=== PATIENT | male | born 1960 | race Two or more races ===

== ENCOUNTER 2020-01-26 01:35 | Inpatient (IN) | payer OTHER ==
[2020-01-26] VITALS (18 sets, daily range): BP systolic 98–139; BP diastolic 40–91
[~2020-01-26] VITALS: Ht 167.6 cm; Wt 64.4 kg
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
--- NOTE | 2020-01-26 01:53 | NUR ---
PT WAS TAKEN TO CT
[2020-01-26] MEDS ORDERED: TDAP [DIPH/PERTUSSIS/TET] 0.5 ML VIAL IM ONE ×2 (02:00→02:44)
--- NOTE | 2020-01-26 02:05 | NUR ---
BACK FRON CT, [employer] AT BED SIDE
--- NOTE | 2020-01-26 02:22 | NUR ---
DR. LOVE SPEAKING WITH RADIOLOGIST
[2020-01-26] MEDS ORDERED: IV NS 0.9% 500 ML BAG IV ONE (02:30)
--- NOTE | 2020-01-26 02:44 | NUR ---
ATTEMPTED TO CONTACT DR. SONI, LEFT MESSAGE. WILL FOLLOW UP
[2020-01-26 02:49] LABS: BASOPHILS # (AUTO) 0.1 /CMM (0.0-0.2); BASOPHILS % (AUTO) 1.2 % (0.0-2.0); CALCIUM, SERUM 9.4 mg/dL (8.5-10.1); CARBON DIOXIDE 28 mmol/L (21-32); CHLORIDE 103 mmol/L (98-107); EOSINOPHILS % (AUTO) 2.5 % (0.0-6.0); GLUCOSE 116 mg/dL (74-106); HEMATOCRIT 44 % (39-51); HEMOGLOBIN 14.5 g/dL (13.5-17.5); LYMPHOCYTES # (AUTO) 1.9 /CMM (0.8-4.8); LYMPHOCYTES % (AUTO) 15.8 % (20.0-44.0); MEAN CORPUSCULAR HGB CONC 33 g/dl (31.0-36.0); MEAN CORPUSCULAR VOLUME 94 fL (80-96); MONOCYTES # (AUTO) 0.8 /CMM (0.1-1.30); MONOCYTES % (AUTO) 6.6 % (2.0-12.0); NEUTROPHILS # (AUTO) 9.1 /CMM (1.8-8.9); NEUTROPHILS % (AUTO) 73.9 % (43.0-81.0); PLATELET COUNT (AUTO) 377 /CMM (150-450); POTASSIUM 4.6 mmol/L (3.5-5.1); RED BLOOD CELL COUNT(AUTO) 4.65 MIL/uL (4.5-6.0); SODIUM SERUM 139 mmol/L (136-145); UREA NITROGEN, BLOOD 18 mg/dL (7-18); WHITE BLOOD COUNT (AUTO) 12.3 K/uL (4.3-11.0)
--- NOTE | 2020-01-26 02:51 | NUR ---
COVID SWAB COLLECTED AND SENT TO THE LAB.
--- NOTE | 2020-01-26 03:00 | NUR ---
BED ASSIGNMENT 255 ICU
--- NOTE | 2020-01-26 03:54 | NUR ---
ATTEMPTED TO CONTACT DR. SONI, LEFT MESSAGE. WILL FOLLOW UP
--- NOTE | 2020-01-26 04:15 | NUR ---
Patient is resting comfortably in bed with eyes closed. Easily aroused. VSS. WILL CONT TO MONITOR ,
--- NOTE | 2020-01-26 05:17 | NUR ---
DR. LOVE SPEAKING WITH DR. SONI
--- NOTE | 2020-01-26 05:31 | NUR ---
pt resting in bed arouses easily. breathing evenly. no acute distress noted . no change in LOC or MS. VSS. will cont to monitor .
[2020-01-26] MEDS ORDERED: MAGNESIUM HYDROXIDE 30 ML UDC PO PRN (06:00)
[2020-01-26] MEDS ORDERED: MAG HYDROX/AL HYDROX/SIMETH 30 ML UDC PO PRN (06:00)
[2020-01-26] MEDS ORDERED: ACETAMINOPHEN 325 MG TABLET PO PRN (06:00)
[2020-01-26] MEDS ORDERED: Z GUARD REMEDY 2 OZ OINT TP PRN (06:00)
[2020-01-26] MEDS ORDERED: ONDANSETRON HCL/PF 4 MG/2 ML VIAL IVP PRN (06:00)
[2020-01-26] MEDS ORDERED: TEMAZEPAM 15 MG CAPSULE PO PRN (06:00)
--- NOTE | 2020-01-26 06:00 | NUR ---
report given to Claudio @ ICU
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
--- NOTE | 2020-01-26 06:25 | NUR ---
pt was transferred to icu under acls. during transfer, noted pt w/ swollen LFA. JAYDEN Snyder and Jordan DEBT COLLECTION SPECIALIST made aware w/ an order for LFA xray. Claudio made aware of the new order.
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
[2020-01-26] MEDS: IV NS 0.9% 1,000 ML IV PRN ×2 (06:46→18:34)
[2020-01-26] MEDS: PANTOPRAZOLE 40 MG TABLET.DR PO SCH (07:39)
[2020-01-26] MEDS: HYDROCODONE/APAP 5/325MG TABLET PO PRN (07:52)
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
--- NOTE | 2020-01-26 09:26 | NUR ---
WOUND CARE CONSULT: PT PRESENTS WITH MULTIPLE WOUNDS PRESENT ON ADMISSION INCLUDING LEFT LOWER LEG RAISED WOUND, LEFT ARM SKIN TEAR, RT FOREHEAD ABRASION WITH RAISED AREA AND POSTERIOR SCALP CLOSED LACERATION WITH JACKI. RECOMMEND SURGICAL AND DPM CONSULTS. DR ARI ONEILL NOTIFIED OF CONSULT REQUEST FOR FOREHEAD AND DR CHENEY NOTIFIED OF DPM CONSULT FOR LEFT LEG. RECOMMENDATIONS MADE FOR SKIN PROTECTION AND WOUND CARE. DEFER TO DPM FOR LOWER EXTREMITY. WILL SEE PRN. HERNANDEZ IN AGREEMENT WITH PLAN OF CARE. Addendum: 01/26/20 at 0928 by JAYCE WOODS WNDNU Amended: Links added.
--- NOTE | 2020-01-26 12:08 | NUR ---
patient's brother Ray: [phone]
--- NOTE | 2020-01-26 12:30 | NUR ---
Dr. Guadalupe aware of LLE swelling/yellow drainage & DMP dx cellulitis. no new orders, monitor for changes
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
--- NOTE | 2020-01-26 17:11 | NUR ---
RETAIL AND PROMOTIONS COORDINATOR closing Patient remains A/Ox4, no neuro changes noted. smile, shoulder, shrug & oncology social worker strength equal, PERRLA, no slurred speech or reports of nausea, dizziness or one sided weakness. SR HR 80s, ambulated to bathroom today, voided x1, wound care orders completed, ate 100% of food, edema L leg, see prior note for MD communication. R AC 22G & L AC 18G, NS @75mL/hr. temp 99.1F @1600. educated pt to report chills/malaise
--- NOTE | 2020-01-26 17:45 | NUR ---
JOINTER OPERATOR NOTES REPORT GET FROM RN . PATIENT A/O X3, ROOM AIR NO ACUTE RESPIRATORY DISTRESS, V/S TAKEN BP-104/71, P-78, R-18, O2-100 ROOM AIR, T- 99.1, REFUSED PAIN, NEURO CHECK DONE ABLE TO MOVE FACE, SHRUG SHOULDERS, ELEVATE LOWER AND UPPER EXTREMITIES. DRESSING INTACT ON HEAD, NO BLEEDING INTACT. INFUSING NS AT 75 ML/HR INTACT ON LEFT AC . CALL LIGHT WITHIN TO REACH. WILL CONTINUED MONITORING.
--- NOTE | 2020-01-26 18:55 | NUR ---
EDGER HAND NOTES PATIET RESTING , NO ACUTE RESPIRATORY DISTRESS, V/S TAKEN BP 119/68, P-88, R=19. ROOM AIR. DUE MEDICATION DONE, INFUSING NS AT 75 ML/HR ON LAC INTACT. CALL LIGHT WITHIN TO REACH. SAFETY PRECAUTION MAINTAINED ALL THE TIME. ENDORSED ONCOMING NURSE FOLLOW PLAN OF CARE.
--- NOTE | 2020-01-26 19:05 | NUR ---
RECEIVED PT ON BED AWAKE. A/O X3 ON RA SPO2 98% ON TELE MONITOR READS SINUS RHYTHM 80'S, KERLIZ BANDAGE ON HEAD CLEAN AND DRY, PT IS ABLE TO TALK,GCS 15 WITH RAC # 22 AND LAC # 18 PATENT AND FLUSHED WITH ONGOING NS @ 75ML/HR , BED ON LOWEST POSITION AND LOCKED SIDE RAILS UP X 2 CALL LIGHT WITHIN REACH WILL CONT TO MONITOR THE PT
--- NOTE | 2020-01-26 23:23 | NUR ---
no changes on condition pt asleep easy to wake up, GCS 15 spo2 99% on room air no complaint of pain will cont to monitor
[2020-01-27] VITALS (20 sets, daily range): BP systolic 101–128; BP diastolic 47–78
--- NOTE | 2020-01-27 04:30 | NUR ---
NO CHANGES ON CONDITION NOTED, GIVE PT BED BATH PT AWAKE AND GCS 15, WOUND TREATMENT DONE ORDERED TOLERATED WELL SPO2 99% VIA ROOM AIR NO COMPLAIN TO PAIN WILL CONT TO MONITOR
[2020-01-27 04:37] LABS: BASOPHILS # (AUTO) 0.1 /CMM (0.0-0.2); BASOPHILS % (AUTO) 0.9 % (0.0-2.0); HEMATOCRIT 40 % (39-51); HEMOGLOBIN 13.2 g/dL (13.5-17.5); LYMPHOCYTES # (AUTO) 1.9 /CMM (0.8-4.8); LYMPHOCYTES % (AUTO) 25.9 % (20.0-44.0); MEAN CORPUSCULAR HGB CONC 33 g/dl (31.0-36.0); MEAN CORPUSCULAR VOLUME 93 fL (80-96); MONOCYTES # (AUTO) 0.7 /CMM (0.1-1.30); MONOCYTES % (AUTO) 9.6 % (2.0-12.0); NEUTROPHILS # (AUTO) 4.3 /CMM (1.8-8.9); NEUTROPHILS % (AUTO) 59.6 % (43.0-81.0); PLATELET COUNT (AUTO) 343 /CMM (150-450); RED BLOOD CELL COUNT(AUTO) 4.26 MIL/uL (4.5-6.0); WHITE BLOOD COUNT (AUTO) 7.2 K/uL (4.3-11.0)
[2020-01-27 04:44] LABS: CALCIUM, SERUM 8.2 mg/dL (8.5-10.1); CREATININE 0.7 mg/dL (0.6-1.3); MAGNESIUM 2.1 mg/dL (1.8-2.4); PHOSPHORUS 3.1 mg/dL (2.5-4.9); POTASSIUM 3.9 mmol/L (3.5-5.1)
[2020-01-27] MEDS: IV NS 0.9% 1,000 ML IV PRN (06:52)
--- NOTE | 2020-01-27 07:23 | NUR ---
PT ASLEEP ON BED EASY TO WAKE UP STILL ON SINUS RHYTHM @ 70'S HAVE EPISODES OF SINUS VASQUEZ 55, OTHER THAN THAN NO SIGNIFICANT CHANGES ON CONDITION NOTED PT STILL GCS 15, ALL NEEDS ATTENDED WOUND TREATMENT DONE BED ON LWOEST PSOITION AND LOCKED SIDE RAILS UP X2 CALL LIGHT WITHIN REACH WILL ENDORSED TO AM SHIFT NURSE
[2020-01-27] MEDS: PANTOPRAZOLE 40 MG TABLET.DR PO SCH (07:41)
[2020-01-27] MEDS: HYDROCODONE/APAP 5/325MG TABLET PO PRN ×3 (14:41→23:15)
--- NOTE | 2020-01-27 18:26 | NUR ---
f/u CT head today showed no new changes, per MD ok to transfer. patient remains a/ox4, no neuro changes noted, on room air, transferred via acls protocol to lower level of care. wound care completed. daughter requesting disability forms to be filled out, per chance from case management primary care physician to follow up
--- NOTE | 2020-01-27 19:00 | NUR ---
OFFICE CLIN ASST NOTE 1830 CONTINUITY OF CARE REPORT RECEIVED FROM DENNIS. RECEIVED PATIENT ALERT AND ORIENTED. C/O HEADACHE 11/01. NO DISTRESS NOTED. PATIENT TRANSFERRED VIA BED ACLS PROTOCOL TO ROOM 112-1, ORIENTED PATIENT TO ROOM AND CALL LIGHT SYSTEM. PATIENT VERBALIZED UNDERSTANDING. ALL BELONGINGS WITH PATIENT. WILL CONTINUE TO MONITOR. 1900 PATIENT RESTING IN BED COMFORTABLY. CALL LIGHT IN HAND. SR ON TELE MONITOR. HOB ELEVATED. SIDE RAILS UP AND LOCKED. BED KEPT AT LOWEST POSITION. CONTINUITY OF CARE ENDORSED TO PM NURSE.
--- NOTE | 2020-01-27 19:40 | NUR ---
NEON SIGN INSTALLER NOTES, RECEIVED PT ON BED ASLEEP BUT AROUSES EASILY TO VERBAL STIMULI, A/O X3, NO CHANGE IN LOC, ON RA SPO2 >97%, SR ON TELE MONITOR WITH HR 80S AT THIS TIME, NO SOB/ACUTE RESPIRATORY DISTRESS NOTED, RAC # 22 AND LAC # 18 PATENT AND INTACT, 0.9% NS @ 75ML/HR INFUSING WELL AND PATIENT TOLERATING WELL, , BED LOCKED AND LOWEST POSITION, SIDE RAILS UP X 2 CALL LIGHT WITHIN REACH, MEDICATION FOR PAIN JUST ADMINISTERED BY NURSE PRIOR TO GIVE ME REPORT, WILL CONTINUE TO MONITOR THE PATIENT CLOSELY.
[2020-01-28] VITALS (7 sets, daily range): BP systolic 107–125; BP diastolic 68–76
[2020-01-28] MEDS: IV NS 0.9% 1,000 ML IV PRN ×2 (02:06→13:15)
[2020-01-28] MEDS: HYDROCODONE/APAP 5/325MG TABLET PO PRN ×2 (03:09→07:51)
[2020-01-28 06:03] LABS: BASOPHILS # (AUTO) 0.1 /CMM (0.0-0.2); BASOPHILS % (AUTO) 0.7 % (0.0-2.0); HEMATOCRIT 42 % (39-51); HEMOGLOBIN 13.9 g/dL (13.5-17.5); LYMPHOCYTES # (AUTO) 1.8 /CMM (0.8-4.8); LYMPHOCYTES % (AUTO) 22.4 % (20.0-44.0); MEAN CORPUSCULAR HGB CONC 33 g/dl (31.0-36.0); MEAN CORPUSCULAR VOLUME 94 fL (80-96); MONOCYTES # (AUTO) 0.8 /CMM (0.1-1.30); NEUTROPHILS # (AUTO) 5.1 /CMM (1.8-8.9); NEUTROPHILS % (AUTO) 62.9 % (43.0-81.0); PLATELET COUNT (AUTO) 356 /CMM (150-450); RED BLOOD CELL COUNT(AUTO) 4.45 MIL/uL (4.5-6.0); WHITE BLOOD COUNT (AUTO) 8.1 K/uL (4.3-11.0)
[2020-01-28] MEDS: MORPHINE SULFATE INJ 2 MG/ML DISP.SYRIN IV PRN ×2 (06:03→20:08)
[2020-01-28 06:08] LABS: CALCIUM, SERUM 8.6 mg/dL (8.5-10.1); CREATININE 0.8 mg/dL (0.6-1.3); POTASSIUM 4.1 mmol/L (3.5-5.1)
--- NOTE | 2020-01-28 06:44 | NUR ---
AEROBICS TEACHER CLOSING NOTES, PATIENT IN BED ASLEEP BUT AROUSES EASILY TO VERBAL STIMULI, A/O X3, NO CHANGE IN LOC THROUGHOUT THE NIGHT, ON RA SPO2 >95% THROUGHOUT THE NIGHT, SR ON TELE MONITOR WITH HR 80S AT THIS TIME, GOES TO 50S WHEN PATIENT SLEEPING, NO SOB/ACUTE RESPIRATORY DISTRESS NOTED, RAC # 22 AND LAC # 18 PATENT AND INTACT, 0.9% NS @ 75ML/HR INFUSING WELL AND PATIENT TOLERATING WELL, NORCOX2 AND MORPHINE X1 ADMINISTERED THROUGHOUT THE NIGHT FOR HEADACHE, BED LOCKED AND LOWEST POSITION, SIDE RAILS UP X 2, CALL LIGHT WITHIN REACH, WILL ENDORSE CONTINUITY OF CARE TO ONCOMING NURSE.
--- NOTE | 2020-01-28 07:30 | NUR ---
RN OPENING NOTE PATIENT IN BED, NO S/S OF DISTRESS, NO SOB, ROOM AIR, O2 SAT 98%, A/O X4 STATELESS AND TAMAZIGHT SPEAKING, TELE MONITOR ON, SINUS RHYTHM, L AC 18 G AND L HAND 18 G PATENT, DRY, INTACT, CLEAN, FLSUEHS WELL, PAIN 9/10 IN HEAD AND BACK, WOUND DRESSINGS ARE CLEAN DRY AN D INTACT, BED IN LOWEST LOCKED POSITION, CALL LIGHT WITHIN REACH, SAFETY MEASURES IN PLACE.
[2020-01-28] MEDS: PANTOPRAZOLE 40 MG TABLET.DR PO SCH (07:50)
--- NOTE | 2020-01-28 10:00 | NUR ---
RN NOTE MD NOTIFIED OF LDL 75, SAID PATIENT IS NOT A STROKE PATIENT SO STATIN DOES NOT NEED TO BE ORDERED. ALSO SAID IT WAS OK TO GIVE flu vaccine.
[2020-01-28] MEDS ORDERED: INFLUENZA VACCINE 2020-21 0.5 ML DISP.SYRIN IM ONE (10:30)
--- NOTE | 2020-01-28 10:46 | NUR ---
RN NOTE PT GOT PATIENT UP OUT OF BED, WAS ABLE TO STAND AND WALK WITH WALKER INTO HALLWAY AND BACK INTO ROOM. PATIENT IS NOW IN BED.
--- NOTE | 2020-01-28 10:50 | NUR ---
STORE GROCERY MERCHANDISER NOTE C\O SEVERE PAIN ON BACK AND HEAD ,STATED THAT MORPHINE AND NORCO NOT HELPING SPOKE WITH DR PRIETO NOTIFIED ABOUT THIS, ORDERED NORCO 10-325 TIME ONE .WILL MONITOR
[2020-01-28] MEDS ORDERED: HYDROCODONE/APAP 10/325MG TABLET PO ONE (11:00)
--- NOTE | 2020-01-28 14:00 | NUR ---
FAMILY COURT REGISTRAR NOTE ROUNDS MADE ,ABLE TO URINATE 900 ML YELLOW COLOR URINE , KEEP CLEAN DRY , CALL LIGHT WITHIN REACH
--- NOTE | 2020-01-28 17:43 | NUR ---
supervisor telephone answering service note having dinner , able to eat self not in distress, cont on ivf as ordered
--- NOTE | 2020-01-28 18:30 | NUR ---
television antenna installer note all needs attended ,cont on ivf as ordered, keep clean dry, no sob noted
--- NOTE | 2020-01-28 18:52 | NUR ---
RN NOTE REMOVED L FOREARM IV BECAUSE OF REDNESS AND PAIN NOTED AT THE SITE. NOW PATIENT HAS L HAND IV ONLY. WILL NOTIFY ONCOMING HOT SAW OPERATOR NURSE. PATIENT ONLY HAS IV NS AT 75ML/HR RUNNING IN L HAND.
--- NOTE | 2020-01-28 18:56 | NUR ---
RN NOTE APPLIED ICE PACK TO REMOVED IV SITE TO HELP DECREASE REDNESS. ARM ELEVATED.
--- NOTE | 2020-01-28 18:56 | NUR ---
RN CLOSING NOTE PATIENT IS IN BED, NO S/S OF DISTRESS, NO RESP DIFFICULTY OR SOB, ON ROOM AIR SAT 97%, A/O X4, NEURO CHECKS ALL DAY HAVE SHOWN NO CHANGES FROM BASELINE, SINUS RHYTHM, AMBULATORY WITH WALKER, L HAND 18 G IV, REGULAR DIET, WOUNDS ARE CLEAN TRY AND INTACt. will endorse to receiving team member
--- NOTE | 2020-01-28 19:27 | NUR ---
RN CALLED BY [facility], TALKED TO JIMENA, ASKED TO SCHEDULE A FOLLOW UP APPOINTMENT. GAVE ELECTRON BEAM WELDER SETTER NURSE THE CONTACT INFORMATION.
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
[2020-01-29] VITALS: BP 125/82
[2020-01-29] MEDS: IV NS 0.9% 1,000 ML IV PRN (02:15)
[2020-01-29] MEDS: MORPHINE SULFATE INJ 2 MG/ML DISP.SYRIN IV PRN (03:04)
[2020-01-29 04:00] VITALS: BP 113/75
[2020-01-29 06:04] LABS: BASOPHILS # (AUTO) 0.1 /CMM (0.0-0.2); BASOPHILS % (AUTO) 0.7 % (0.0-2.0); EOSINOPHILS % (AUTO) 3.7 % (0.0-6.0); HEMATOCRIT 43 % (39-51); HEMOGLOBIN 14.2 g/dL (13.5-17.5); LYMPHOCYTES # (AUTO) 1.5 /CMM (0.8-4.8); LYMPHOCYTES % (AUTO) 13.8 % (20.0-44.0); MEAN CORPUSCULAR HGB CONC 33 g/dl (31.0-36.0); MEAN CORPUSCULAR VOLUME 93 fL (80-96); MONOCYTES % (AUTO) 8.9 % (2.0-12.0); NEUTROPHILS # (AUTO) 8.1 /CMM (1.8-8.9); NEUTROPHILS % (AUTO) 72.9 % (43.0-81.0); PLATELET COUNT (AUTO) 385 /CMM (150-450); RED BLOOD CELL COUNT(AUTO) 4.64 MIL/uL (4.5-6.0); WHITE BLOOD COUNT (AUTO) 11.1 K/uL (4.3-11.0)
[2020-01-29 06:13] LABS: CALCIUM, SERUM 9.1 mg/dL (8.5-10.1); CREATININE 0.9 mg/dL (0.6-1.3); POTASSIUM 4.7 mmol/L (3.5-5.1)
--- NOTE | 2020-01-29 06:59 | NUR ---
RN notes In bed resting with no distress noted. Breathing even and unlabored. On room air tolerating well. Alert and oriented, able to verbalize needs. Noted with facial grimace and restless complaining of head and back pain 10/10. Administered morphine x 2 with relief. Kept clean and dry. Will endorse to next shift for continuity of care.
--- NOTE | 2020-01-29 07:30 | NUR ---
RN OPENING NOTES PATIENT IN BED, NOT IN ANY S/S OF DISTRESS, NO SOB, ROOM AIR, O2 SAT 98%, A/O X4 RUSSIAN AND SWEDISH SPEAKING, TELE MONITOR ON, SINUS RHYTHM, L AC 18 G AND L HAND 18 G PATENT, DRY, INTACT, CLEAN, FLSUEHS WELL, PAIN 9/10 IN HEAD AND BACK, WOUND DRESSINGS ARE CLEAN DRY AN D INTACT, BED IN LOWEST LOCKED POSITION. SAFETY PRECAUTION OBSERVED. CALL LIGHT WITHIN REACH, SAFETY MEASURES IN PLACE. WILL CONTINUE TO MONITOR.
[2020-01-29 08:00] VITALS: BP 124/77
[2020-01-29] MEDS: PANTOPRAZOLE 40 MG TABLET.DR PO SCH (09:04)
--- NOTE | 2020-01-29 11:00 | NUR ---
This SW received a call from JAYDEN Shepard in the [facility]. JAYDEN Shepard informed this SW that Dr. Guadalupe spoke to the patient and patient is agreeable for placement. Dr. Guadalupe also spoke to this SW on this call. Plan: SW to follow-up with case management team regarding proper placement.
--- NOTE | 2020-01-29 11:45 | NUR ---
ENDORSED INÉS TO STACY (JAYDEN). PT IN STABLE CONDITION.
[2020-01-29 12:00] VITALS: BP 102/63
--- NOTE | 2020-01-29 15:47 | NUR ---
RN NOTE: REPORT RECEIVED FROM JAYDEN MABRY FOR TRANSITION OF CARE
[2020-01-29 16:00] VITALS: BP 102/57
[2020-01-29] MEDS ORDERED: PNEUMOCOCCAL 23-VAL P-SAC VAC 0.5 ML VIAL SQ ONE (17:30)
--- NOTE | 2020-01-29 17:52 | NUR ---
RN NOTE: PT REQUESTED AND GIVEN THE PNA VACCINE. FLU SHOT PREVIOUSLY ADMINISTERED. PT ALSO RECEIVED 650 MG TYLENOL FOR PAIN.
--- NOTE | 2020-01-29 17:53 | NUR ---
RN NOTE: REPORT GIVEN TO JAYDEN WOODS AT [facility]. AWAITING TRANSPORT
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
--- NOTE | 2020-01-29 19:52 | NUR ---
RN NOTE: INCIDENT REPORT FILED, Unique Id: [id number]
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
== END 2020-01-29 19:34 | DRG 56 ==
LOC: ER 01:38 → ICU 03:05 → TELE1 01-27 18:25 → MEDSG1 01-29 09:38
PROVIDERS: ADMIT Family Medicine; ATTEND Family Medicine
PROC: 0JBP0ZZ Excision of Left Lower Leg Subcutaneous Tissue and Fascia, Open Approach (ICD-10-PCS; principal; 2020-01-26)
DX: S06.310A Contusion and laceration of right cerebrum without loss of consciousness, initial encounter (principal); S02.0XXA Fracture of vault of skull, initial encounter for closed fracture; S02.19XA Other fracture of base of skull, initial encounter for closed fracture; Y00.XXXA Assault by blunt object, initial encounter; Y92.89 Other specified places as the place of occurrence of the external cause; R40.2362 Coma scale, best motor response, obeys commands, at arrival to emergency department; R40.2142 Coma scale, eyes open, spontaneous, at arrival to emergency department; R40.2252 Coma scale, best verbal response, oriented, at arrival to emergency department; S81.802A Unspecified open wound, left lower leg, initial encounter; F17.210 Nicotine dependence, cigarettes, uncomplicated; L03.116 Cellulitis of left lower limb; Y93.9 Activity, unspecified; D72.829 Elevated white blood cell count, unspecified; Z59.0 Homelessness; F15.90 Other stimulant use, unspecified, uncomplicated; S51.802A Unspecified open wound of left forearm, initial encounter
CPT/HCPCS: 36415; 70450-TC; 71045-TC; 73030-TC; 73090-TC; 80048-TC; 80061-TC; 82962-TC; 83735-TC; 84100-TC; 84484-TC; 85025-TC; 85730-TC; 87081-TC; 90715; 90732; 93307-TC; 93970-TC; 97112-TC; 97116-TC; 97530-TC; A6253; A6403; G0378; J2270; J7030; J7040; Q2036